=== PATIENT | male | born 1980 | race Caucasian/White ===

== ENCOUNTER 2016-08-31 08:35 | Emergency (ER) | payer OTHER ==
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
[2016-08-31 10:44] VITALS: BP 150/75
== END 2016-08-31 10:40 | disposition home or self-care (01) ==
LOC: ER 08:35
DX: S16.1XXA Strain of muscle, fascia and tendon at neck level, initial encounter (principal); M54.2 Cervicalgia; V87.7XXA Person injured in collision between other specified motor vehicles (traffic), initial encounter
CPT/HCPCS: 72050; 99284

== ENCOUNTER → 2018-09-12 | Outpatient (CLI) | payer OTHER ==
--- NOTE | 2018-09-12 20:06 | RADIOLOGY REPORT (SQ) ---
EXAM DESCRIPTION: MRI LT UPPER JOINT WITHOUT COMPLETED DATE/TIME: 09/12/2018 12:38 pm REASON FOR STUDY: LEFT SHOULDER PAIN M25.512 PAIN IN LEFT SHOULDER COMPARISON: None. TECHNIQUE: Left shoulder images acquired and stored on PACS. Multiplanar imaging to include fat sens itive sequences such as T1, water sensitive sequences such as FST2/STIR, cartilage sensitive sequence s such as FSPD/gradient-echo sequences. LIMITATIONS: None. FINDINGS: BONE MARROW AND CORTEX: No worrisome bone lesions or marrow replacement. No occult fractur es. JOINT OR BURSAL EFFUSION: No significant joint or bursal fluid. No suggestion of loose bodies. GLENO-HUMERAL ARTICULATION: Normal articulation. No subluxation. No cystic change. No osteophytes or cartilage loss. ACROMION AND AC JOINT: Type 1 acromion. No down-sloping or distal spur. Sub-acromial space maintain ed. No significant AC joint arthropathy. ROTATOR CUFF AND INTERVAL: No significant tear or signal alteration. No cuff muscle atrophy. No rotator interval tear. No rotator interval thickening to suggest adhesive capsulitis. LABRUM AND BICEPS LABRAL COMPLEX: Large type 2 slap tear of the superior labrum. Distal biceps in its normal anatomic location. REMAINDER OF LABRUM AND IGHL : No gross tear or paralabral cyst formation. Labral evaluation is less than optimal without joint distention. No thickening of IGHL to suggest adhesive capsulitis. PERIARTICULAR AND ADJACENT SOFT TISSUES: No masses or abnormal nodes. OTHER: No other significant finding. IMPRESSION: Large type 2 slap tear of the superior labrum. TECHNICAL DOCUMENTATION: JOB ID: [id number] [employer]- All Rights Reserved Reading location - IP/workstation name: [email or web address]
== END ==
LOC: RAD 11:51
PROVIDERS: ATTEND Orthopaedic Surgery
DX: M25.512 Pain in left shoulder (principal)

== ENCOUNTER 2019-01-22 20:27 | Emergency (ER) | payer OTHER ==
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
[2019-01-22 23:07] LABS: ABSOLUTE EOSINOPHILS # (AUTO) 0.2 10^3/uL (0.0-0.6); ABSOLUTE LYMPHOCYTES (AUTO) 2.1 10^3/uL (0.5-4.7); ABSOLUTE MONOCYTES (AUTO) 0.7 10^3/uL (0.1-1.4); ABSOLUTE NEUT (AUTO) 5.8 10^3/uL (1.7-8.2); BASOPHILS % (AUTO) 0.3 % (0-2); EOSINOPHILS % (AUTO) 2.1 % (0-6); HEMATOCRIT 26.5 % (37.9-51.0); HEMOGLOBIN 9.3 g/dL (13.5-17.0); MEAN CORPUSCULAR HEMOGLOBIN 30.7 pg (27.0-33.4); MEAN CORPUSCULAR HGB CONC 34.9 g/dL (32.0-36.0); MEAN CORPUSCULAR VOLUME 88 fl (80-97); MONOCYTES % (AUTO) 7.6 % (3-13); PLATELET COUNT 203 10^3/uL (150-450); RED BLOOD COUNT 3.02 10^6/uL (4.35-5.55); RED CELL DISTRIBUTION WIDTH 12.3 % (11.5-14.0); TOTAL CELLS COUNTED % (AUTO) 100 %; WHITE BLOOD COUNT 8.7 10^3/uL (4.0-10.5)
[2019-01-22 23:28] LABS: ALBUMIN 3.7 g/dL (3.5-5.0); ALKALINE PHOSPHATASE 60 U/L (38-126); ANION GAP 7 (5-19); ASPARTATE AMINO TRANSFERASE 33 U/L (17-59); BLOOD UREA NITROGEN 23 mg/dL (7-20); CARBON DIOXIDE 30 mmol/L (22-30); CHLORIDE 101 mmol/L (98-107); GLUCOSE 96 mg/dL (75-110); POTASSIUM 4.1 mmol/L (3.6-5.0); TOTAL PROTEIN 5.9 g/dL (6.3-8.2)
[2019-01-22 23:37] LABS: BILIRUBIN,TOTAL < 0.1 mg/dL (0.2-1.3)
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
[2019-01-23] MEDS ORDERED: ONDANSETRON 4 MG TAB.RAPDIS PO ONE (00:05)
[2019-01-23] MEDS ORDERED: FAMOTIDINE 20 MG TABLET PO ONE (00:05)
[2019-01-23] MEDS ORDERED: SUCRALFATE 1 GM TABLET PO ONE (00:06)
[2019-01-23] MEDS ORDERED: PANTOPRAZOLE SODIUM 40 MG TABLET.DR PO ONE (00:06)
[2019-01-23 01:31] VITALS: BP 121/75
== END 2019-01-23 01:31 | disposition home or self-care (01) ==
LOC: ER 20:27
DX: D64.9 Anemia, unspecified (principal); R11.10 Vomiting, unspecified; R10.13 Epigastric pain; R19.5 Other fecal abnormalities; Z87.891 Personal history of nicotine dependence
CPT/HCPCS: 99283; 86900; 86901; 36415; 86850; 85025; 80053; S0119; J3490